=== PATIENT | female | born 1970 | race Caucasian/White ===

== ENCOUNTER 2016-07-29 18:01 | Emergency (ER) | payer MEDICAID ==
[~2016-07-29] VITALS: Ht 152.4 cm; Wt 56.0 kg
[~2016-07-29 18:01] MED LIST: PREN1TAB49
[2016-07-29 18:15] VITALS: Ht 152.4 cm; Wt 56.0 kg
[2016-07-29] MEDS ORDERED: KETOROLAC 15 MG INJ IM STA (18:36)
[2016-07-29] MEDS ORDERED: ONDANSETRON (ODT) 4 MG TAB ODT STA (18:36)
--- NOTE | 2016-07-29 18:43 | ERD ---
ER Documentation Chief Complaint Date/Time DATE: 07/29/16 TIME: 18:37 Chief Complaint BACK PAIN RAD ABD, DIZZZINESS, NO VOMITING HPI This 46-year-old female presents to emergency department today with complaints of right-sided back/flank pain, right upper abdominal pain, right lower abdominal pain, patient reports pain as sharp and intermittent, dizziness with nausea without vomiting, no change in appetite, normal bowel movements, last BM yesterday. Denies dysuria, hematuria, denies fever, chills. Patient denies any injury. ROS All systems reviewed and are negative except as per history of present illness. Medications Home Meds Reported Medications Vits W-Ca,Fe,Fa(<1MG) () 1 Tab Tablet 10/13/10 Allergies Allergies: Coded Allergies: No Known Allergy (Verified Allergy, Mild, 10/13/10) PMhx/Soc Medical and Surgical Hx: pt denies Medical Hx, pt denies Surgical Hx Anesthesia Reaction: No Hx Neurological Disorder: No Hx Respiratory Disorders: No Hx Cardiac Disorders: No Hx Psychiatric Problems: No Hx Miscellaneous Medical Probl: No Hx Alcohol Use: No Hx Substance Use: No Hx Tobacco Use: No Smoking Status: Never smoker Physical Exam Vitals Vital Signs Date Time Temp Pulse Resp B/P Pulse Ox O2 Delivery O2 Flow Rate FiO2 07/29/16 20:21 97.7 07/29/16 18:15 98.1 62 18 130/62 99 Vitals stable, triage notes reviewed Physical Exam Const: No acute distress Head: Eyes: Normal Conjunctiva no pallor or jaundice, EOMI, PERRLA ENT: Normal External Ears, Nose and Mouth. Mucous membranes moist Neck: Resp: Cardio: Abdomen symmetrical, soft, tympanic to percussion, right upper, epigastric, quadrant tenderness, right lower quadrant tenderness, pelvic tenderness. Skin: No petechiae or rashes Back: Right flank tenderness. Ext: Neur: Awake and alert Psych: Normal Mood and Affect Results 24 hrs Laboratory Tests Test 07/29/16 19:39 Bedside Urine pH (LAB) 7.5 Bedside Urine Protein (LAB) 1+ Bedside Urine Glucose (UA) Negative Bedside Urine Ketones (LAB) Negative Bedside Urine Blood Trace-intact Bedside Urine Nitrite (LAB) Negative Bedside Urine Leukocyte Esterase (L Negative Current Medications Medications (Trade) Dose Ordered Sig/Jorden Route PRN Reason Start Time Stop Time Status Last Admin Dose Admin Ketorolac Tromethamine (Toradol) 15 mg ONCE STAT IM 07/29/16 18:36 07/29/16 18:38 DC 07/29/16 20:16 Ondansetron HCl (Zofran Odt) 4 mg ONCE STAT ODT 07/29/16 18:36 07/29/16 18:38 DC 07/29/16 20:16 Procedures/MDM This 46-year-old female presents with right upper and lower abdominal pain radiating to right lumbar, nausea without vomiting. Symptoms started yesterday. Patient has taken no medication for symptomatic relief. Differential diagnosis includes urinary tract infection, nephrolithiasis, cholecystitis. Urinalysis negative for any leukocytosis or nitrates. Patient receives Toradol and Zofran reassessed after 60 minutes, patient reports improvement in symptoms. I feel patient is appropriate for follow-up with primary care physician in outpatient setting. Patient will receive Ultram, and Zofran to take home with her, strict return to emergency room precautions advised return for increased pain, nausea, vomiting. I feel the patient is stable for discharge at this time. I have discussed results, examination findings, the treatment plan with the patient and family present prior to discharge. Indications for emergent reevaluation, side effects of medication were also discussed. All questions were answered. Patient verbalizes understanding and agrees with plan of care. Departure Diagnosis: Primary Impression: Flank pain Condition: Good Patient Instructions: Flank Pain, Uncertain Cause Additional Instructions: Thank you for for coming to [facility] for your care today. Please ask your nurse or provider if you have questions about your care today and do not leave until all your questions have been answered. Please use any medications given as directed and follow-up with your doctor (or the doctor you were referred to) in the next 2-3 days. If you do not have a primary care doctor you may follow up at the [facility] (listed below). You may also use motrin and tylenol as needed for fever and/or pain unless instructed otherwise by your provider or nurse. Indications for more urgent follow-up have been discussed, but you may return to the Emergency Department at ANY time for any worrisome or worsening symptoms. If you have abdominal pain, please know that no test or exam you received is perfect and you should follow up within 8 hours for continued pain. If you had any imaging studies today, such as an X-Ray or CT Scan, these studies will be reviewed later by a radiologist. You will be called if there are important findings that were not identified today, so make sure the contact information you provided at registration is correct. If you received any narcotic pain control medicine today, such as Vicodin, Morphine or Dilaudid, your coordination and judgment may be affected for a number of hours. Please do not drive or operate heavy machinery, and you may want someone to assist you at home. If you were given a prescription for narcotic medication, be aware that it is very addictive- use sparingly and only if necessary. JAMIE PRITCHARD Jul 29, 2016 18:43
[2016-07-29 19:39] LABS: URINE BLOOD (Dip) POC Trace-intact (NEGATIVE)
[2016-07-29] MEDS ORDERED: ONDA4TAB14 PO (20:58)
[2016-07-29] MEDS ORDERED: TRAM50TA2 PO (20:59)
[2016-07-29 21:34] VITALS: BP 118/60; PULSE 56; RESP 22; TEMP 97.8
== END 2016-07-29 21:36 | disposition home or self-care (01) ==
LOC: FTE 18:01
DX: R10.11 Right upper quadrant pain (principal); R10.31 Right lower quadrant pain; R10.13 Epigastric pain; R10.2 Pelvic and perineal pain; R11.0 Nausea
CPT/HCPCS: 81003; 96372; J1885; Z7502; Z7610